=== PATIENT | male | born 2000 | race Caucasian/White ===

== ENCOUNTER 2019-10-04 16:15 | Emergency (ER) | payer OTHER, SELFPAY ==
--- NOTE | ~2019-10-04 | XR_ITS ---
EXAMINATION: XR wrist RT min 3V DATE: 10/04/2019 16:39 INDICATION: Right wrist pain TECHNIQUE: Posteroanterior, ulnar deviation, oblique, and lateral views of the right wrist were obtai craig. COMPARISON: 12/26/1915 FINDINGS: There is medial soft tissue swelling of the wrist. No fracture, dislocation, or subluxation is identified. The bones and joint spaces are normal. IMPRESSION: 1. Medial soft tissue swelling of the wrist without associated osseous abnormality. Reviewed, dictated and finalized at location A. [facility] [facility] IMPRESSION: 1. Medial soft tissue swelling of the wrist without associated osseous abnormal ity.
[2019-10-04 16:26] VITALS: BP 129/60; PULSE 85; RESP 18; TEMP 36.6; O2SAT 100
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
== END 2019-10-04 17:12 | disposition home or self-care (01) ==
PROVIDERS: Emergency Provider Nurse Practitioner
DX: S63.501A Unspecified sprain of right wrist, initial encounter (principal); S66.911A Strain of unspecified muscle, fascia and tendon at wrist and hand level, right hand, initial encounter; V18.4XXA Pedal cycle driver injured in noncollision transport accident in traffic accident, initial encounter; S70.11XA Contusion of right thigh, initial encounter
CPT/HCPCS: 73110; 99213; G0463

== ENCOUNTER 2021-02-21 09:42 | Emergency (ER) | payer OTHER, SELFPAY ==
[2021-02-21 09:52] VITALS: BP 124/66; PULSE 60; RESP 16; TEMP 35.7; O2SAT 99
--- NOTE | 2021-02-21 09:57 | ED.SKABFB ---
HPI - Skin/Abscess/Foreign Bdy General Chief complaint: Skin/Abscess/Foreign Body Stated complaint: cyst lower back Time Seen by Provider: 02/21/21 09:57 Source: patient and RN notes reviewed Mode of arrival: ambulatory Limitations: no limitations History of Present Illness HPI narrative: 20 yo male presents to the [facility] with C/O redness and swelling to the sacral area. Has had the same in the past, Last time it was an abscess and needed to be drained. States that he bumped it a week ago and today it was sore and red with inflammation. Denies Abd pain, Chest pain. Denies fevers. Denies drainage. MD complaint: abscess/boil Onset (ago): day(s) (7 but has had in the past) Related Data Allergies Allergy/AdvReac Type Severity Reaction Status Date / Time No Known Allergies Allergy Unknown Verified 02/21/21 10:07 Review of Systems Review of Systems: All systems reviewed & are unremarkable except as noted in HPI and below Constitutional: Constitutional: Reports no additional constitutional complaints, Denies chills and Denies fever(s) Eyes: Eyes: Reports no additional eye complaints ENT: Reports system reviewed and no additional complaints, except as documented Cardiovascular: Cardiovascular: Reports no additional cardiovascular complaints and Denies chest pain Respiratory: Respiratory: Reports no additional respiratory complaints and Denies cough Gastrointestinal: Gastrointestinal: Reports no additional gastrointestinal complaints and Denies abdominal pain Musculoskeletal: Musculoskeletal: Reports no additional musculoskeletal complaints Integumentary/Breasts: Skin/Breast: Reports as per HPI and Reports erythema (Sacral area) Neurologic: Reports system reviewed and no additional complaints, except as documented Psychiatric: Psychiatric: Reports no additional psychiatric complaints Allergic/Immunologic: Allergic/Immunologic: Reports no additional allergic/immunologic complaints [facility] Social History Social History Gender identity (if verbalized by the patient): Male Comments At the time of my signature, I reviewed and agree with the nursing past medical, surgical, social, and family history. There is no relevant family history pertinent to the patient complaint. Exam Const: General: no acute distress Orientation/consciousness: patient oriented x3 Neck: Neck: normal visual inspection, no lymphadenopathy and no meningeal signs Chest: Chest palpation & inspection: normal inspection of the chest Resp: Effort & Inspection: normal respiratory effort and no use of accessory muscles Auscultation: clear to auscultation bilaterally, no crackles, no rales, no rhonchi and no wheezes Cardio: Rate: regular rate Rhythm: regular rhythm Back/Spine/Pelvis: Back: no CVA tenderness Skin: General skin exam: normal color Rashes: no rashes Trauma: no lacerations or abrasions Wounds: no wounds Other: 3x2.5 cm red warm area that has NO fluctuance. Full body images: 1. 3x2.5 cm red raised area without warmth to touch. No drainable site. Neuro: General: patient oriented x3, moves all extremities, no meningeal signs and no focal motor deficits Speech: normal speech Gait exam (Neuro): Normal gait present Extrem: General: normal to inspection and no pedal edema Psych: Appearance: grossly normal and well kempt Mental Status: mental status grossly normal Affect: normal affect Attitude: cooperative Thought content: Yes Normal thought content present Course Course Emergency Course: Discharge instructions reviewed with patient, as well as provided in writing per nursing staff. The instructions also include specific and strict return/GO TO THE ER as well as f/u information. All questions have been answered, and the patient deny any further questions with discharge and discharge plan. Vital Signs Vital signs: Vital Signs Temperature 96.3 F L 02/21/21 09:52 Pulse R
== END 2021-02-21 10:13 | disposition home or self-care (01) ==
PROVIDERS: Emergency Provider Nurse Practitioner
DX: L03.317 Cellulitis of buttock (principal)
CPT/HCPCS: 99213; G0463